=== PATIENT | female | born 1950 | race Caucasian/White ===

== ENCOUNTER 2017-09-08 08:59 | Outpatient (CLI) | payer MEDICARE ==
[2017-09-08 18:37] LABS: THYROID STIMULATING HORMONE 0.13 uIU/mL (0.34-5.60)
[2017-09-08 21:44] LABS: FREE T4 (FREE THYROXINE) 1.11 ng/dL (0.58-1.64)
== END 2017-09-08 09:00 | disposition home or self-care (01) ==
LOC: LAB.F 08:59
PROVIDERS: ATTEND Internal Medicine
DX: E03.9 Hypothyroidism, unspecified (principal)
CPT/HCPCS: 36415; 84439; 84443

== ENCOUNTER 2017-10-15 10:22 | Outpatient (CLI) | payer MEDICARE | END 2017-10-15 10:23 | disposition home or self-care (01) | LOC: LAB.F 10:22 | PROVIDERS: ATTEND Internal Medicine | DX: E03.9 Hypothyroidism, unspecified (principal) | CPT/HCPCS: 36415; 84443 ==